=== PATIENT | male | born 1960 | race Caucasian/White ===

== ENCOUNTER 2023-05-12 17:59 | Outpatient (RCR) | payer BC, SELFPAY | END 2023-05-12 23:59 | disposition home or self-care (01) | LOC: RPT 17:59 | PROVIDERS: ATTENDING PHYSICIAN Orthopaedic Surgery Orthopaedic Surgery of the Spine | DX: Z47.89 Encounter for other orthopedic aftercare (principal); M48.062 Spinal stenosis, lumbar region with neurogenic claudication; M43.16 Spondylolisthesis, lumbar region; Z73.6 Limitation of activities due to disability; M62.81 Muscle weakness (generalized); R26.89 Other abnormalities of gait and mobility; Z98.1 Arthrodesis status | CPT/HCPCS: 97110; 97112; 97140; 97161; 97530 ==

== ENCOUNTER 2023-05-28 17:05 | Outpatient (RCR) | payer BC, SELFPAY | END 2023-05-29 09:56 | disposition home or self-care (01) | LOC: RPT 17:05 | PROVIDERS: ATTENDING PHYSICIAN Orthopaedic Surgery Orthopaedic Surgery of the Spine | DX: Z47.89 Encounter for other orthopedic aftercare (principal); M48.062 Spinal stenosis, lumbar region with neurogenic claudication; M43.16 Spondylolisthesis, lumbar region; Z73.6 Limitation of activities due to disability; R26.89 Other abnormalities of gait and mobility; Z98.1 Arthrodesis status | CPT/HCPCS: 97110; 97112; 97530 ==

== ENCOUNTER → 2023-07-07 06:52 | Outpatient (REF) | payer BC, SELFPAY ==
[2023-07-07 07:59] LABS: NT-proBNP 94.4 pg/ml
[2023-07-07 08:01] LABS: Prealbumin (Transthyretin) 38.2 mg/dl (17.6-36.0)
[2023-07-07 08:10] LABS: Carbon Dioxide 27 mmol/L (22-30); Chloride 102 mmol/L (98-107); Potassium 4.6 mmol/L (3.5-5.1); Sodium 136 mmol/L (135-145); Total Cholesterol 128 mg/dl (50-199)
[2023-07-07 08:22] LABS: Blood Urea Nitrogen 24 mg/dl (9-20); Calcium 9.8 mg/dl (8.4-10.2); Glucose 115 mg/dl (70-99); HDL Cholesterol 43 mg/dl; LDL Cholesterol, Calculated 61 mg/dl; Triglyceride 120 mg/dl (10-149); Very Low Density Lipoprotein 24 mg/dl (0-30); eGFR > 60.00
== END ==
LOC: REG 06:52
PROVIDERS: ATTENDING PHYSICIAN Internal Medicine Cardiovascular Disease; FAMILY PHYSICIAN Internal Medicine Cardiovascular Disease
DX: E78.00 Pure hypercholesterolemia, unspecified (principal); I50.30 Unspecified diastolic (congestive) heart failure; R06.09 Other forms of dyspnea
CPT/HCPCS: 36415; 80048; 80061; 83880; 84134

== ENCOUNTER → 2023-08-22 07:01 | Outpatient (REF) | payer BC, SELFPAY ==
[2023-08-22 07:58] LABS: Blood Urea Nitrogen 22 mg/dl (9-20); Calcium 9.8 mg/dl (8.4-10.2); Carbon Dioxide 30 mmol/L (22-30); Chloride 102 mmol/L (98-107); Glucose 109 mg/dl (70-99); Potassium 4.5 mmol/L (3.5-5.1); Sodium 137 mmol/L (135-145); eGFR > 60.00
== END ==
LOC: REG 07:01
PROVIDERS: ATTENDING PHYSICIAN Internal Medicine Geriatric Medicine
DX: R26.2 Difficulty in walking, not elsewhere classified (principal); K76.0 Fatty (change of) liver, not elsewhere classified
CPT/HCPCS: 36415; 80048; 83036

== ENCOUNTER → 2024-01-19 06:45 | Outpatient (REF) | payer BC, SELFPAY ==
[2024-01-19 08:15] LABS: Blood Urea Nitrogen 27 mg/dl (9-20); Calcium 9.4 mg/dl (8.4-10.2); Carbon Dioxide 24 mmol/L (22-30); Chloride 103 mmol/L (98-107); Glucose 96 mg/dl (70-99); Potassium 4.3 mmol/L (3.5-5.1); Sodium 142 mmol/L (135-145); eGFR > 60.00
[2024-01-19 09:03] LABS: PSA, Total - Screen 0.58 ng/ml (0.0-4.0)
== END ==
LOC: REG 06:45
PROVIDERS: ATTENDING PHYSICIAN Internal Medicine Cardiovascular Disease; FAMILY PHYSICIAN Internal Medicine Geriatric Medicine
DX: I10 Essential (primary) hypertension (principal); G47.33 Obstructive sleep apnea (adult) (pediatric); Z95.1 Presence of aortocoronary bypass graft; E78.5 Hyperlipidemia, unspecified; I25.10 Atherosclerotic heart disease of native coronary artery without angina pectoris
CPT/HCPCS: 36415; 80048; G0103

== ENCOUNTER → 2024-02-09 06:51 | Outpatient (REF) | payer BC, SELFPAY ==
[2024-02-09 08:38] LABS: NT-proBNP 200 pg/ml
== END ==
LOC: REG 06:51
PROVIDERS: ATTENDING PHYSICIAN Internal Medicine Cardiovascular Disease; FAMILY PHYSICIAN Internal Medicine Geriatric Medicine; OTHER PHYSICIAN Internal Medicine Cardiovascular Disease
DX: E85.4 Organ-limited amyloidosis (principal); I43 Cardiomyopathy in diseases classified elsewhere
CPT/HCPCS: 36415; 83880

== ENCOUNTER 2024-02-12 11:27 | Outpatient (RCR) | payer BC, SELFPAY ==
[2024-02-12] VITALS (8 sets, daily range): BP systolic 124–145; BP diastolic 72–91
[2024-02-12] MEDS: NSS 250 IV (11:45)
[2024-02-12] MEDS: BENADRYL 25 MG PO (11:48)
[2024-02-12] MEDS: TYLENOL 650 MG PO (11:48)
[2024-02-12] MEDS: GAMMAGARD 50 IV (11:49)
[2024-02-12] MEDS: GAMMAGARD 200 IV ×2 (12:35→13:34)
== END 2024-02-12 15:20 | disposition home or self-care (01) ==
LOC: OID 11:27
PROVIDERS: ATTENDING PHYSICIAN Psychiatry & Neurology Neurology; FAMILY PHYSICIAN Internal Medicine Geriatric Medicine
DX: E85.82 Wild-type transthyretin-related (ATTR) amyloidosis (principal); E55.9 Vitamin D deficiency, unspecified; R26.2 Difficulty in walking, not elsewhere classified; R60.0 Localized edema; M54.9 Dorsalgia, unspecified
CPT/HCPCS: 96365; 96366; J1569

== ENCOUNTER → 2024-02-18 11:22 | Outpatient (RCR) | payer BC, SELFPAY ==
[2024-02-13] VITALS (8 sets, daily range): BP systolic 118–139; BP diastolic 65–92
[2024-02-13] MEDS: NSS 250 IV (11:36)
[2024-02-13] MEDS: GAMMAGARD 50 IV (11:37)
[2024-02-13] MEDS: TYLENOL 650 MG PO (11:37)
[2024-02-13] MEDS: BENADRYL 25 MG PO (11:38)
[2024-02-13] MEDS: GAMMAGARD 200 IV ×2 (12:21→13:24)
[2024-02-16] VITALS (7 sets, daily range): BP systolic 113–127; BP diastolic 67–79
[2024-02-16] MEDS: TYLENOL 650 MG PO (11:36)
[2024-02-16] MEDS: BENADRYL 25 MG PO (11:36)
[2024-02-16] MEDS: NSS 250 IV (11:42)
[2024-02-16] MEDS: GAMMAGARD 50 IV (11:42)
[2024-02-16] MEDS: GAMMAGARD 200 IV ×2 (12:27→13:29)
[2024-02-17] VITALS (7 sets, daily range): BP systolic 106–135; BP diastolic 65–90
[2024-02-17] MEDS: NSS 250 IV (11:35)
[2024-02-17] MEDS: TYLENOL 650 MG PO (11:36)
[2024-02-17] MEDS: BENADRYL 25 MG PO (11:36)
[2024-02-17] MEDS: GAMMAGARD 50 IV (11:36)
[2024-02-17] MEDS: GAMMAGARD 200 IV ×2 (12:17→13:38)
[2024-02-18] VITALS (8 sets, daily range): BP systolic 121–138; BP diastolic 72–86
[2024-02-18] MEDS: GAMMAGARD 50 IV (11:40)
[2024-02-18] MEDS: NSS 250 IV (11:40)
[2024-02-18] MEDS: TYLENOL 650 MG PO (11:41)
[2024-02-18] MEDS: BENADRYL 25 MG PO (11:41)
[2024-02-18] MEDS: GAMMAGARD 200 IV ×2 (12:27→13:31)
== END ==
LOC: OID 11:22
PROVIDERS: ATTENDING PHYSICIAN Psychiatry & Neurology Neurology; FAMILY PHYSICIAN Internal Medicine Geriatric Medicine
DX: E85.82 Wild-type transthyretin-related (ATTR) amyloidosis (principal); G61.0 Guillain-Barre syndrome; E55.9 Vitamin D deficiency, unspecified; R26.2 Difficulty in walking, not elsewhere classified; E78.2 Mixed hyperlipidemia; R60.0 Localized edema; M54.9 Dorsalgia, unspecified
CPT/HCPCS: 96365; 96366; J1569

== ENCOUNTER → 2024-02-25 11:00 | Outpatient (REF) | payer BC, SELFPAY | LOC: RCS 11:00 | PROVIDERS: ATTENDING PHYSICIAN Internal Medicine Cardiovascular Disease; FAMILY PHYSICIAN Internal Medicine Geriatric Medicine; REFERRING PHYSICIAN Internal Medicine Cardiovascular Disease | DX: I25.10 Atherosclerotic heart disease of native coronary artery without angina pectoris (principal); I50.30 Unspecified diastolic (congestive) heart failure; E85.4 Organ-limited amyloidosis; I43 Cardiomyopathy in diseases classified elsewhere | CPT/HCPCS: 93306; 93356 ==

== ENCOUNTER → 2024-03-09 06:41 | Outpatient (REF) | payer BC, SELFPAY ==
[2024-03-09 08:11] LABS: Blood Urea Nitrogen 25 mg/dl (9-20); Calcium 9.3 mg/dl (8.4-10.2); Carbon Dioxide 25 mmol/L (22-30); Chloride 100 mmol/L (98-107); Glucose 113 mg/dl (70-99); Potassium 4.4 mmol/L (3.5-5.1); Sodium 138 mmol/L (135-145); eGFR > 60.00
== END ==
LOC: REG 06:41
PROVIDERS: ATTENDING PHYSICIAN Internal Medicine Cardiovascular Disease; FAMILY PHYSICIAN Internal Medicine Geriatric Medicine
DX: I25.10 Atherosclerotic heart disease of native coronary artery without angina pectoris (principal); I50.30 Unspecified diastolic (congestive) heart failure
CPT/HCPCS: 36415; 80048

== ENCOUNTER 2024-06-02 11:28 | Outpatient (RCR) | payer BC, SELFPAY ==
[2024-05-19 11:40] VITALS: BP 128/77
[2024-05-19] MEDS: VYVGART HYTRULO 1,008MG-11,200 1008 MG SC (11:55)
[2024-05-26 11:42] VITALS: BP 121/72
[2024-05-26] MEDS: VYVGART HYTRULO 1,008MG-11,200 1008 MG SC (11:54)
[2024-06-02 11:43] VITALS: BP 126/78
[2024-06-02] MEDS: VYVGART HYTRULO 1,008MG-11,200 1008 MG SC (11:54)
== END 2024-06-03 08:39 | disposition home or self-care (01) ==
LOC: OID 11:28
PROVIDERS: ATTENDING PHYSICIAN Psychiatry & Neurology Neurology; FAMILY PHYSICIAN Internal Medicine Geriatric Medicine
DX: E85.82 Wild-type transthyretin-related (ATTR) amyloidosis (principal); E55.9 Vitamin D deficiency, unspecified; R26.2 Difficulty in walking, not elsewhere classified; E78.2 Mixed hyperlipidemia; R60.0 Localized edema; M54.9 Dorsalgia, unspecified; G61.0 Guillain-Barre syndrome
CPT/HCPCS: 96372; J9334

== ENCOUNTER → 2024-06-24 06:45 | Outpatient (REF) | payer BC, SELFPAY ==
[2024-06-24 07:44] LABS: NT-proBNP 120 pg/ml
[2024-06-24 07:56] LABS: Blood Urea Nitrogen 27 mg/dl (9-20); Calcium 10.2 mg/dl (8.4-10.2); Carbon Dioxide 26 mmol/L (22-30); Chloride 101 mmol/L (98-107); Glucose 114 mg/dl (70-99); Potassium 4.6 mmol/L (3.5-5.1); Sodium 139 mmol/L (135-145); eGFR > 60.00
[2024-06-24 08:03] LABS: Prealbumin (Transthyretin) 39.2 mg/dl (17.6-36.0)
== END ==
LOC: REG 06:45
PROVIDERS: ATTENDING PHYSICIAN Internal Medicine Cardiovascular Disease; FAMILY PHYSICIAN Internal Medicine Geriatric Medicine; REFERRING PHYSICIAN Internal Medicine Cardiovascular Disease
DX: E85.4 Organ-limited amyloidosis (principal); I43 Cardiomyopathy in diseases classified elsewhere
CPT/HCPCS: 36415; 80048; 83880; 84134

== ENCOUNTER 2024-07-07 11:28 | Outpatient (RCR) | payer BC, SELFPAY ==
[2024-06-16 11:33] VITALS: BP 125/76
[2024-06-16] MEDS: VYVGART HYTRULO 1,008MG-11,200 1008 MG SC (11:41)
[2024-06-16 11:57] VITALS: BP 123/73
[2024-06-23 11:49] VITALS: BP 130/74
[2024-06-23] MEDS: VYVGART HYTRULO 1,008MG-11,200 1008 MG SC (11:58)
[2024-06-30 11:32] VITALS: BP 125/71
[2024-06-30] MEDS: VYVGART HYTRULO 1,008MG-11,200 1008 MG SC (11:43)
[2024-07-07 11:35] VITALS: BP 138/74
[2024-07-07] MEDS: VYVGART HYTRULO 1,008MG-11,200 1008 MG SC (11:42)
== END 2024-07-09 13:10 | disposition home or self-care (01) ==
LOC: OID 11:28
PROVIDERS: ATTENDING PHYSICIAN Psychiatry & Neurology Neurology; FAMILY PHYSICIAN Internal Medicine Geriatric Medicine
DX: E85.82 Wild-type transthyretin-related (ATTR) amyloidosis (principal); E55.9 Vitamin D deficiency, unspecified; R26.2 Difficulty in walking, not elsewhere classified; E78.2 Mixed hyperlipidemia; R60.0 Localized edema; M54.9 Dorsalgia, unspecified; G61.0 Guillain-Barre syndrome
CPT/HCPCS: 96372; J9334

== ENCOUNTER 2024-07-14 11:28 | Outpatient (RCR) | payer BC, SELFPAY ==
[2024-07-14 11:37] VITALS: BP 132/75
[2024-07-14] MEDS: VYVGART HYTRULO 1,008MG-11,200 1008 MG SC (11:46)
== END 2024-07-16 14:36 | disposition home or self-care (01) ==
LOC: OID 11:28
PROVIDERS: ATTENDING PHYSICIAN Psychiatry & Neurology Neurology; FAMILY PHYSICIAN Internal Medicine Geriatric Medicine
DX: E85.82 Wild-type transthyretin-related (ATTR) amyloidosis (principal); E55.9 Vitamin D deficiency, unspecified; G61.0 Guillain-Barre syndrome; R26.2 Difficulty in walking, not elsewhere classified; R60.0 Localized edema; M54.9 Dorsalgia, unspecified; E78.2 Mixed hyperlipidemia
CPT/HCPCS: 96372; J9334

== ENCOUNTER → 2024-07-16 06:49 | Outpatient (REF) | payer BC, SELFPAY ==
[2024-07-16 08:02] LABS: Blood Urea Nitrogen 29 mg/dl (9-20); Calcium 9.8 mg/dl (8.4-10.2); Carbon Dioxide 25 mmol/L (22-30); Chloride 105 mmol/L (98-107); Glucose 107 mg/dl (70-99); HDL Cholesterol 37 mg/dl; LDL Cholesterol, Calculated 41 mg/dl; Potassium 4.4 mmol/L (3.5-5.1); Sodium 140 mmol/L (135-145); Total Cholesterol 102 mg/dl (50-199); Triglyceride 122 mg/dl (10-149); Very Low Density Lipoprotein 24 mg/dl (0-30); eGFR > 60.00
== END ==
LOC: REG 06:49
PROVIDERS: ATTENDING PHYSICIAN Internal Medicine Cardiovascular Disease; FAMILY PHYSICIAN Internal Medicine Geriatric Medicine
DX: I10 Essential (primary) hypertension (principal); I25.10 Atherosclerotic heart disease of native coronary artery without angina pectoris; E78.00 Pure hypercholesterolemia, unspecified
CPT/HCPCS: 36415; 80048; 80061

== ENCOUNTER → 2024-07-28 10:49 | Outpatient (REF) | payer BC, SELFPAY | LOC: RAD 10:49 | PROVIDERS: ATTENDING PHYSICIAN Internal Medicine Geriatric Medicine | DX: R07.89 Other chest pain (principal) | CPT/HCPCS: 71046; 71120 ==

== ENCOUNTER 2024-09-08 11:19 | Outpatient (RCR) | payer BC, SELFPAY ==
[2024-09-01 11:32] VITALS: BP 127/77
[2024-09-01] MEDS: VYVGART HYTRULO 1,008MG-11,200 1008 MG SC (11:46)
[2024-09-08 11:47] VITALS: BP 129/79
[2024-09-08] MEDS: VYVGART HYTRULO 1,008MG-11,200 1008 MG SC (11:49)
== END 2024-09-10 09:03 | disposition home or self-care (01) ==
LOC: OID 11:19
PROVIDERS: ATTENDING PHYSICIAN Psychiatry & Neurology Neurology; FAMILY PHYSICIAN Internal Medicine Geriatric Medicine
DX: E85.82 Wild-type transthyretin-related (ATTR) amyloidosis (principal); E55.9 Vitamin D deficiency, unspecified; R26.2 Difficulty in walking, not elsewhere classified; R60.0 Localized edema; M54.9 Dorsalgia, unspecified; G61.0 Guillain-Barre syndrome; E78.2 Mixed hyperlipidemia
CPT/HCPCS: 96372; J9334

== ENCOUNTER 2024-09-22 11:22 | Outpatient (RCR) | payer BC, SELFPAY ==
[2024-09-15 11:29] VITALS: BP 126/78
[2024-09-15] MEDS: VYVGART HYTRULO 1,008MG-11,200 1008 MG SC (11:44)
[2024-09-22 11:27] VITALS: BP 127/79
[2024-09-22] MEDS: VYVGART HYTRULO 1,008MG-11,200 1008 MG SC (11:37)
== END 2024-09-23 08:20 | disposition home or self-care (01) ==
LOC: OID 11:22
PROVIDERS: ATTENDING PHYSICIAN Psychiatry & Neurology Neurology; FAMILY PHYSICIAN Internal Medicine Geriatric Medicine
DX: E85.82 Wild-type transthyretin-related (ATTR) amyloidosis (principal); E55.9 Vitamin D deficiency, unspecified; R26.2 Difficulty in walking, not elsewhere classified; E78.2 Mixed hyperlipidemia; R60.0 Localized edema; M54.9 Dorsalgia, unspecified; G61.0 Guillain-Barre syndrome
CPT/HCPCS: 96372; J9334

== ENCOUNTER 2024-11-10 11:15 | Outpatient (RCR) | payer BC, SELFPAY ==
[2024-10-27 11:34] VITALS: BP 127/84
[2024-10-27] MEDS: VYVGART HYTRULO 1,008MG-11,200 1008 MG SC (11:47)
[2024-11-03 11:35] VITALS: BP 112/79
[2024-11-03] MEDS: VYVGART HYTRULO 1,008MG-11,200 1008 MG SC (11:41)
[2024-11-10 11:48] VITALS: BP 125/72
[2024-11-10] MEDS: VYVGART HYTRULO 1,008MG-11,200 1008 MG SC (11:53)
== END 2024-11-11 23:59 | disposition home or self-care (01) ==
LOC: OID 11:15
PROVIDERS: ATTENDING PHYSICIAN Psychiatry & Neurology Neurology; FAMILY PHYSICIAN Internal Medicine Geriatric Medicine
DX: E85.82 Wild-type transthyretin-related (ATTR) amyloidosis (principal); E55.9 Vitamin D deficiency, unspecified; R26.2 Difficulty in walking, not elsewhere classified; E78.2 Mixed hyperlipidemia; R60.0 Localized edema; M54.9 Dorsalgia, unspecified; G61.0 Guillain-Barre syndrome; G61.81 Chronic inflammatory demyelinating polyneuritis
CPT/HCPCS: 96372; J9334

== ENCOUNTER 2024-12-01 11:18 | Outpatient (RCR) | payer BC, SELFPAY ==
[2024-11-17 11:21] VITALS: BP 140/87
[2024-11-17] MEDS: VYVGART HYTRULO 1,008MG-11,200 1008 MG SC (11:30)
[2024-11-24 11:34] VITALS: BP 143/84
[2024-11-24] MEDS: VYVGART HYTRULO 1,008MG-11,200 1008 MG SC (11:53)
[2024-12-01 11:43] VITALS: BP 133/77
[2024-12-01] MEDS: VYVGART HYTRULO 1,008MG-11,200 1008 MG SC (11:53)
== END 2024-12-12 23:59 | disposition home or self-care (01) ==
LOC: OID 11:18
PROVIDERS: ATTENDING PHYSICIAN Psychiatry & Neurology Neurology; FAMILY PHYSICIAN Internal Medicine Geriatric Medicine
DX: E85.82 Wild-type transthyretin-related (ATTR) amyloidosis (principal); E55.9 Vitamin D deficiency, unspecified; R26.2 Difficulty in walking, not elsewhere classified; E78.2 Mixed hyperlipidemia; R60.0 Localized edema; M54.9 Dorsalgia, unspecified; G61.0 Guillain-Barre syndrome; G61.81 Chronic inflammatory demyelinating polyneuritis
CPT/HCPCS: 96372; J9334

== ENCOUNTER 2024-12-28 06:47 | Emergency (ER) | payer BC, SELFPAY ==
[2024-12-28 06:51] VITALS: BP 143/89
--- NOTE | 2024-12-28 08:38 | ED.GENMED ---
History of Present Illness
<PETE Marquez - Last Filed: 12/28/24 16:25>
General
Chief Complaint: Musculo-Skeletal Complaint
Source: patient
Exam Limitations: none
Time Seen by Provider: 12/28/24 08:06
Nursing documentation reviewed up to this point in time: agreed with
History of Present Illness
History of Present Illness:
Patient is a 64-year-old male with past medical history of CAD CABG amyloid cardiomyopathy , chronic inflammatory demyelinating presents to the ER for evaluation. Patient reports last evening he got up off the sofa and felt intense pain in his left
hip. He complains of pain that radiates down his left leg he does feel slight pain to the left buttock/back region. He had a lumbar fusion years ago by Dr. Aaron Armando. Denies any trauma. Denies any fever chills. Denies any numbness tingling
weakness. Denies any bowel bladder incontinence. He reports pain is worse with standing he complains of shooting pain down his leg.
Past History
<PETE Marquez - Last Filed: 12/28/24 16:25>
Past History
ED Past Medical History: GERD, HTN, NIDDM, Other (Guillain-Martinsburg syndrome diagnosed in 2018), Other (CHANTALE) and Other (low vitamin D)
ED Past Surgical History: Orthopedic (right shoulder replacement, ankle surgeries)
Social History
Tobacco: Non-smoker
Drug: None
Personal:
Living: with family
Employment: Employed
Family History
Family History: Other (reviewed and noncontributory)
Phy Exam
<PETE Marquez - Last Filed: 12/28/24 16:25>
General Physical Exam
General Presentation: no apparent distress
General age: appears stated age
General Skin: warm and dry
General Habitus: normal
General Mental: alert
General Hydration: appears well hydrated
Neurological Exam
Neurological Exam: alert and oriented x3
Musculoskeletal Exam
Musculoskeletal Exam: other (Full range of motion to left hip with internal/external rotation negative straight legs normal distal sensation chronic deformity to left lower leg from surgery years ago)
Skin Exam
Skin Exam: normal color and warm/dry
Psychiatric Exam
Psychiatric Exam: normal mood/affect
Course
<PETE Marquez - Last Filed: 12/28/24 16:25>
Orders/Labs/Results
Orders:
Orders
12/28/24 08:28
Ketorolac [Toradol] 30 mg IM NOW STA
12/28/24 08:44
Hip, Left 2-3 Views [CR Hip - LT w/wo Pel 2-3 Vw*] Urgent
Comment:
Reason For Exam: pain left hip region
Include a pelvis x-ray?: Yes
12/28/24 10:06
Dexamethasone Pf [Decadron] 10 mg PO NOW STA
12/28/24 11:54
diazePAM [Valium Injection] 5 mg IM NOW STA
Vital Signs
Initial and Last Documented VS:
Initial Vital Signs
Temp Pulse Resp BP Pulse Ox
98.0 F 70 18 143/89 95
12/28/24 06:51 12/28/24 06:51 12/28/24 06:51 12/28/24 06:51 12/28/24 06:51
Last Documented Vital Signs
Temp Pulse Resp BP Pulse Ox
98.0 F 74 16 145/80 98
12/28/24 06:51 12/28/24 13:24 12/28/24 13:24 12/28/24 13:24 12/28/24 13:24
Conference Service Coordinator consulted with Physician
Conference Service Coordinator consulted with physician?: Yes
Name of Physician Consulted: Valeria
<Tisha Shaw DO - Last Filed: 12/28/24 11:45>
Orders/Labs/Results
Orders:
Orders
12/28/24 08:28
Ketorolac [Toradol] 30 mg IM NOW STA
12/28/24 08:44
Hip, Left 2-3 Views [CR Hip - LT w/wo Pel 2-3 Vw*] Urgent
Comment:
Reason For Exam: pain left hip region
Include a pelvis x-ray?: Yes
12/28/24 10:06
Dexamethasone Pf [Decadron] 10 mg PO NOW STA
12/28/24 11:54
diazePAM [Valium Injection] 5 mg IM NOW STA
Vital Signs
Initial and Last Documented VS:
Initial Vital Signs
Temp Pulse Resp BP Pulse Ox
98.0 F 70 18 143/89 95
12/28/24 06:51 12/28/24 06:51 12/28/24 06:51 12/28/24 06:51 12/28/24 06:51
Last Documented Vital Signs
Temp Pulse Resp BP Pulse Ox
98.0 F 74 16 145/80 98
12/28/24 06:51 12/28/24 13:24 12/28/24 13:24 12/28/24 13:24 12/28/24 13:24
<PETE Marquez - Last Filed: 12/28/24 16:25>
MDM/Problems Addressed
Differential Diagnosis Includes:
Not limited to degenerative disease, arthritis, muscle sprain strain, muscle pain, sciatica radiculopathy
MDM/Problems Addressed:
Symptoms are mostly consistent with sciatica. Patient received Decadron here along with Valium with improvement still with some discomfort. He has been evaluated by Dr. Wilkinson as well as Dr. Aaron Pedersen in the past and we discussed close outpatient
follow-up will likely need MRI. He has no neurological deficits no bowel or bladder incontinence. Case discussed with ED physician who evaluated patient at bedside.
He has Flexeril at home however Valium seems to work better for him. He is aware to not take Valium while taking his oxycodone and obviously he will stop Flexeril we will send a prescription for Valium and steroids to patient's pharmacy.
Chronic conditions affecting care:
Chronic pain amyloid cardiomyopathy, CIDP
<PETE Marquez - Last Filed: 12/28/24 16:25>
*Radiology
Radiology exam reviewed: radiology read reviewed
*Pulse Oximetry
SaO2: 95
Oxygen Mode of Delivery: Room air
Patient hypoxic: no
*Critical Care Note
Total Time (30-74mins, 75-104mins- exclusive of procedures): Not Applicable
ED Attending Note
<PETE Marquez - Last Filed: 12/28/24 16:25>
-
Portions of this chart may have been created with voice recognition software.� Occasional wrong word or��sound alike� substitutions may have occurred due to the inherent limitations of voice recognition software.
<Tisha Shaw DO - Last Filed: 12/28/24 11:45>
ED Attending Note
Patient seen and examined by attending physician: Yes
I performed the substantive portion of visit, reviewed & personally made and approve the management plan that is documented in note by myself or DILLAN.: Yes
I performed a history and physical exam of patient and discussed management with resident, I reviewed resident's note and agree with documented findings and plan of care.: Yes
ED Attending Note:
64-year-old male with history of prior lumbar surgery presenting to the emergency department for left-sided back pain. Patient reports it started yesterday after he got up out of a recliner chair. He felt immediate pain in the left lower back,
radiating down his leg. Reports chronic neuropathy, which has not changed. Reports pain and difficulty ambulating secondary to pain. Denies fever. Denies issues with bowel or bladder continence. He tried Tylenol prior to arrival. Denies
additional injuries or direct fall. Vital signs are normal.
On exam patient is resting comfortably, no acute distress. Mild reproducible pain to the left lumbar musculature, particularly at the gluteal region. No significant tenderness to the midline. Distal sensation is diminished, however reports this
is chronic. Palpable pulses. Range of motion at the hip is grossly intact, limited secondary to pain. Ultimately suspect lumbar radiculopathy. X-ray obtained of the hip region, unremarkable. Toradol administered for pain with some slight
improvement. Do feel patient would benefit from trial of steroids. Will ambulate to ensure patient is steady.
Discharge Plan
Departure
Patient Disposition: Home (Routine Discharge)
Date of Disposition: 12/28/24
Time of Disposition: 13:11
Patient with high blood pressure during this ER visit?: Yes
Condition: Fair
Covid-19: Not Applicable
Discharge Problem:
Radicular leg pain, Sciatica
Instructions: Sciatica - ED (DC), BLOOD PRESSURE
Prescriptions:
New
prednisone 10 mg Tablet
See Rx Instructions .ROUTE .COMPLEX Qty: 30 0RF
Rx Instructions:
Take By Mouth:
40 mg daily x3 days, 30 mg daily x3 days,
20 mg daily x3 days, 10 mg daily x3 days.
diazepam [Valium] 5 mg tablet
5 mg PO BID PRN (Reason: muscle spasm) Qty: 10 0RF
No Action
amoxicillin 500 MG capsule
500 mg PO DAILY
Patient Comments:
no end date
carvedilol 3.125 MG tablet
3.125 mg PO BID
zinc 50 MG tablet
50 mg PO DAILY
ezetimibe 10 MG tablet
10 mg PO DAILY
Vyndamax 61 mg Capsule
61 mg PO DAILY@1600
Patient Comments:
04/05/2023, patient states that they get this medication delivered to them from [facility]; phone number: [phone].
B-complex with vitamin C 1 CAPLET tablet
1 caplet PO DAILY
lisinopril 10 MG tablet
10 mg PO HS Qty: 0 0RF
ascorbic acid (vitamin C) [Vitamin C] 1,000 mg Tablet
1,000 mg PO DAILY
aspirin 81 mg Tablet,Delayed Release (Dr/Ec)
162 mg PO DAILY
acetaminophen [Tylenol Arthritis] 650 mg Tablet Extended Release
650 mg PO BID
coenzyme Q10 [CoQ-10] 100 mg Capsule
100 mg PO DAILY
Visbiome 112.5 billion cell Capsule
1 cap PO DAILY
cholecalciferol (vitamin D3) 75 mcg (3,000 unit) Tablet
75 mcg PO DAILY
psyllium husk
5 cap PO BID
furosemide 40 mg Tablet
40 mg PO DAILY
trazodone 50 mg Tablet
100 mg PO HS
ferrous sulfate [iron] 325 mg (65 mg iron) Tablet
325 mg PO DAILY
omeprazole 20 mg Capsule,Delayed Release(Dr/Ec)
20 mg PO DAILY
lorazepam 1 mg Tablet
1 mg PO BID PRN (Reason: anxiety/muscle spasm)
Patient Comments:
04/05/2023, patient filled this medication on 02/28/2023 for 90 tablets according to PDMP.
potassium chloride 10 mEq Tablet,Er Particles/Crystals
10 meq PO DAILY
cyclobenzaprine 10 mg tablet
10 mg PO DAILYPRN PRN (Reason: muscle spasm)
atorvastatin 80 MG tablet
80 mg PO QPM
oxycodone 10 MG tablet
10 mg PO DAILYPRN PRN (Reason: severe pain)
Patient Comments:
04/05/2023, patient filled this medication on 03/01/2023 for 90 tablets according to PDMP.
Jardiance 10 mg Tablet
10 mg PO DAILY
Vyvgart Hytrulo 1,008 mg-11,200 unit/5.6 mL Solution
5.6 ml SC QWEEK
eplerenone 25 mg Tablet
25 mg PO DAILY
Referrals:
Aaron Armando MD [Active, Orthopedics]
Roque Smalls MD [Family Provider, Internal Medicine]
Activity Restrictions/Additional Instructions:
As discussed a prescription for steroid taper along Valium sent to pharmacy take as directed. Please follow-up with your orthopedic physician in the next several days. call to make an appointment. Stop Flexeril and do not take oxycodone while
taking Valium. Return if any worsening of symptoms include increasing pain loss of bowel bladder or weakness in lower extremities or any further concerns.
Interventions
Interventions:
*Risk Screen - Suicide Last Done: 12/28/24 06:51
*General Assessment Last Done: 12/28/24 06:51
*Neglect/Abuse Screening Last Done: 12/28/24 06:51
*ED- Fall Risk Assessment Last Done: 12/28/24 13:24
*ED COVID-19 Vaccine History Last Done: 12/28/24 13:24
*Nursing Disposition Last Done: 12/28/24 13:24
ED-Musculoskeletal Assessment Last Done: 12/28/24 08:45
Discharge Date and Time
Discharge Date/Time: 12/28/24 13:35
Print Language: BULGARIAN
[2024-12-28] MEDS: TORADOL 30 MG IM (08:41)
[2024-12-28] MEDS: DECADRON 10 MG PO (10:45)
[2024-12-28] MEDS: VALIUM INJECTION 5 MG IM (12:04)
[2024-12-28 13:24] VITALS: BP 145/80
== END 2024-12-28 13:35 | disposition home or self-care (01) ==
LOC: EMR 06:47
PROVIDERS: EMERGENCY PHYSICIAN Student in an Organized Health Care Education/Training Program; FAMILY PHYSICIAN Internal Medicine Geriatric Medicine
DX: M54.42 Lumbago with sciatica, left side (principal); E85.4 Organ-limited amyloidosis; I43 Cardiomyopathy in diseases classified elsewhere; G61.81 Chronic inflammatory demyelinating polyneuritis; E11.40 Type 2 diabetes mellitus with diabetic neuropathy, unspecified; I25.810 Atherosclerosis of coronary artery bypass graft(s) without angina pectoris; I10 Essential (primary) hypertension; G47.33 Obstructive sleep apnea (adult) (pediatric); K21.9 Gastro-esophageal reflux disease without esophagitis; Z79.84 Long term (current) use of oral hypoglycemic drugs; Z79.82 Long term (current) use of aspirin; Z95.1 Presence of aortocoronary bypass graft; Z96.611 Presence of right artificial shoulder joint
CPT/HCPCS: 99284; 96372 ×2; 73502

== ENCOUNTER → 2025-01-18 20:12 | Outpatient (REF) | payer BC, SELFPAY | LOC: MRI 20:12 | PROVIDERS: ATTENDING PHYSICIAN Orthopaedic Surgery Orthopaedic Surgery of the Spine; FAMILY PHYSICIAN Internal Medicine Geriatric Medicine | DX: Z98.1 Arthrodesis status (principal); M43.16 Spondylolisthesis, lumbar region; M48.062 Spinal stenosis, lumbar region with neurogenic claudication | CPT/HCPCS: 72158; A9575 ==

== ENCOUNTER → 2025-01-21 06:53 | Outpatient (REF) | payer BC, SELFPAY ==
[2025-01-21 07:25] LABS: Hematocrit 51.8 % (39.0-52.0); Hemoglobin 17.6 g/dL (13.0-18.0); Mean Corp Hgb Conc. 34.0 g/dL (33.0-37.0); Mean Corpuscular Volume 94.4 fL (80.0-94.0); Nucleated Red Blood Cells % 0 % (-); Platelet Count 185 10^3/uL (130-400); Red Cell Dist. Width 13.5 % (11.5-14.5)
[2025-01-21 07:48] LABS: Urine Character Clear (Clear)
[2025-01-21 07:53] LABS: ALT (SGPT) 36 U/L (0-50); AST (SGOT) 28 U/L (17-59); Albumin 5.2 g/dl (3.5-5.0); Alkaline Phosphatase 63 U/L (38-126); Blood Urea Nitrogen 25 mg/dl (9-20); Calcium 9.8 mg/dl (8.4-10.2); Carbon Dioxide 30 mmol/L (22-30); Chloride 102 mmol/L (98-107); Glucose 116 mg/dl (70-99); HDL Cholesterol 52 mg/dl; LDL Cholesterol, Calculated 55 mg/dl; Potassium 4.5 mmol/L (3.5-5.1); Sodium 140 mmol/L (135-145); Total Protein 7.0 g/dl (6.3-8.2); Very Low Density Lipoprotein 23 mg/dl (0-30); eGFR > 60.00
[2025-01-21 08:09] LABS: Vitamin D, 25-OH*** 37.8 ng/mL (30-80)
[2025-01-21 08:33] LABS: Urine Red Blood Cell 0-2 /HPF (0-2); Urine Squamous Cell 0-2 /LPF (Few); Urine White Cell 0-2 /HPF (0-5)
== END ==
LOC: REG 06:53
PROVIDERS: ATTENDING PHYSICIAN Internal Medicine Geriatric Medicine
DX: Z00.00 Encounter for general adult medical examination without abnormal findings (principal); I10 Essential (primary) hypertension; E78.2 Mixed hyperlipidemia; I11.9 Hypertensive heart disease without heart failure; R73.03 Prediabetes; I25.118 Atherosclerotic heart disease of native coronary artery with other forms of angina pectoris; M19.011 Primary osteoarthritis, right shoulder; E55.9 Vitamin D deficiency, unspecified; K21.9 Gastro-esophageal reflux disease without esophagitis; R07.89 Other chest pain; Z13.89 Encounter for screening for other disorder; G61.81 Chronic inflammatory demyelinating polyneuritis
CPT/HCPCS: 36415; 80053; 80061; 81003; 81015; 82306; 85025; 85652

== ENCOUNTER → 2025-01-31 17:39 | Outpatient (REF) | payer BC, SELFPAY | LOC: MRI 17:39 | PROVIDERS: ATTENDING PHYSICIAN Orthopaedic Surgery Orthopaedic Surgery of the Spine; FAMILY PHYSICIAN Internal Medicine Geriatric Medicine | DX: M25.852 Other specified joint disorders, left hip (principal) | CPT/HCPCS: 73721 ==

== ENCOUNTER 2025-03-09 09:30 | Inpatient (IN) | payer BC, SELFPAY ==
[2025-02-24 09:12] LABS: Hematocrit 48.5 % (39.0-52.0); Hemoglobin 16.7 g/dL (13.0-18.0); Mean Corp Hgb Conc. 34.4 g/dL (33.0-37.0); Mean Corpuscular Volume 90.5 fL (80.0-94.0); Platelet Count 211 10^3/uL (130-400); Red Cell Dist. Width 12.9 % (11.5-14.5)
[2025-02-24 10:29] LABS: ALT (SGPT) 35 U/L (0-50); AST (SGOT) 25 U/L (17-59); Albumin 5.2 g/dl (3.5-5.0); Alkaline Phosphatase 66 U/L (38-126); Blood Urea Nitrogen 22 mg/dl (9-20); Calcium 9.8 mg/dl (8.4-10.2); Carbon Dioxide 22 mmol/L (22-30); Chloride 103 mmol/L (98-107); Glucose 86 mg/dl (70-99); Potassium 4.2 mmol/L (3.5-5.1); Sodium 137 mmol/L (135-145); Total Protein 7.1 g/dl (6.3-8.2); eGFR > 60.00
[2025-02-24 13:53] VITALS: BMI 35.3
[2025-02-24 14:48] VITALS: BMI 35.3
[2025-03-09] VITALS (17 sets, daily range): BP systolic 100–133; BP diastolic 67–91; PULSE 66–67; O2SAT 94–96
[2025-03-09] MEDS: VALIUM INJECTION 5 MG IV (10:30)
[2025-03-09] MEDS: NORMOSOL-R/PLASMALYTE-A 1000 IV ×2 (10:31→15:24)
[2025-03-09] MEDS: TYLENOL 1000 MG PO ×3 (10:32→21:48)
[2025-03-09] MEDS: CELEBREX 200 MG PO (10:32)
[2025-03-09] MEDS: LYRICA PO (10:32)
[2025-03-09] MEDS: LYRICA 150 MG PO (10:35)
[2025-03-09] MEDS: DILAUDID 0.5 MG IV (13:47)
[2025-03-09] MEDS: DILAUDID 0.25 MG IV (13:57)
[2025-03-09] MEDS: ROXICODONE 15 MG PO ×2 (15:21→21:49)
--- NOTE | 2025-03-09 15:45 | W.DS.TRANS ---
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
-
Discharge Instructions:
Discharge Diagnosis/Procedures Revision lumbar lami-psf Dr Armando 03/09/25
Diet As tolerated
Activity No strenuous activity
Driving Restrictions No driving
Instructions:
Stand-Alone Forms: Armando Lumbar D/C Inst.
Changes to Home Medications: Yes
Discharge Medications:
DC Medications w/original date entered in [employer]
amoxicillin 500 mg capsule 500 mg PO DAILY Infection 07/24/21
carvedilol 3.125 mg tablet 3.125 mg PO BID Blood pressure 07/24/21
ezetimibe 10 mg tablet 10 mg PO DAILY High cholesterol 07/24/21
tafamidis 61 mg capsule (Vyndamax) 61 mg PO DAILY@1600 Heart Disease/Condition 02/21/23
B-complex with vitamin C 1 caplet PO DAILY Supplement 03/05/23
ascorbic acid (vitamin C) 1,000 mg tablet (Vitamin C) 1,000 mg PO DAILY 04/05/23
aspirin 81 mg tablet,delayed release 162 mg PO DAILY 04/05/23
Held on 03/09/25. Instructions: Resume on 03/14/25.
atorvastatin 80 mg tablet 80 mg PO QPM 04/05/23
cholecalciferol (vitamin D3) 75 mcg (3,000 unit) tablet 75 mcg PO DAILY 04/05/23
omeprazole 20 mg capsule,delayed release 20 mg PO DAILY 04/05/23
potassium chloride 10 mEq tablet,extended release(part/cryst) 10 meq PO DAILY 04/05/23
psyllium husk 5 cap PO BID 04/05/23
empagliflozin 10 mg tablet (Jardiance) 10 mg PO DAILY 02/12/24
efgartigimod geovanny 1008 [id number] 11,200 unit/5.6 mL subcut soln (Vyvgart Hytrulo) 5.6 ml SC QWEEK 05/26/24
cephalexin 500 mg capsule 500 mg PO QID infection prevention #20 caps 03/02/25
coenzyme Q10 100 mg tablet 100 mg PO DAILY 03/02/25
Held on 03/09/25. Instructions: Resume on 03/17/25.
diazepam 5 mg tablet (Valium) 5 mg PO BID PRN spasm/sleep #20 tabs 03/02/25
gabapentin 300 mg capsule 300 mg PO TID sleep/pain #30 caps 03/02/25
naloxone 4 mg/actuation nasal spray (Narcan) 4 mg intranasal Q2M PRN opioid overdose #1 ea 03/02/25
ondansetron 4 mg disintegrating tablet 4 mg PO Q6H PRN n/v #20 tabs 03/02/25
oxycodone 10 mg tablet,crush resistant,extended release 12 hr (OxyContin) 10 mg PO Q12H ongoing therapy #25 tabs 03/02/25
prednisone 10 mg tablet 40 mg (4 x 10 mg) PO TAPER inflammation #20 tabs 03/02/25
trazodone 100 mg tablet 100 mg PO HS 03/02/25
zinc acetate 50 mg (zinc) capsule 50 mg PO DAILY 03/02/25
Lactobac no.2-Bifidobac no.1-S. thermo 112.5 billion cell capsule (Visbiome) 1 cap PO BID #0 caps 03/09/25
acetaminophen 650 mg tablet,extended release 650 mg PO QID #0 tabs 03/09/25
docusate sodium 100 mg capsule (Colace) 100 mg PO BID stool softner #1 cap 03/09/25
eplerenone 25 mg tablet 25 mg PO DAILY #0 tabs 03/09/25
furosemide 40 mg tablet 40 mg PO DAILY #0 tabs 03/09/25
lisinopril 10 mg tablet 10 mg PO HS #0 tabs 03/09/25
magnesium hydroxide 400 mg/5 mL oral suspension (Milk of Magnesia) 30 ml PO HS PRN constipation #1 mL 03/09/25
oxycodone 10 mg tablet 10 mg PO Q6HPRN PRN moderate-severe pain #1 tab 03/09/25
sennosides 8.6 mg tablet (Senokot) 17.2 mg (2 x 8.6 mg) PO BID laxative #2 tabs 03/09/25
Home Medication Changes
cephalexin 500 mg capsule 500 mg PO QID infection prevention #20 caps 03/02/25
diazepam 5 mg tablet (Valium) 5 mg PO BID PRN spasm/sleep #20 tabs 03/02/25
gabapentin 300 mg capsule 300 mg PO TID sleep/pain #30 caps 03/02/25
naloxone 4 mg/actuation nasal spray (Narcan) 4 mg intranasal Q2M PRN opioid overdose #1 ea 03/02/25
ondansetron 4 mg disintegrating tablet 4 mg PO Q6H PRN n/v #20 tabs 03/02/25
oxycodone 10 mg tablet,crush resistant,extended release 12 hr (OxyContin) 10 mg PO Q12H ongoing therapy #25 tabs 03/02/25
prednisone 10 mg tablet 40 mg (4 x 10 mg) PO TAPER inflammation #20 tabs 03/02/25
Pending Results: No
[2025-03-09] MEDS: ANCEF 5 IV (17:55)
--- NOTE | 2025-03-09 18:33 | PTCARENOTE ---
Pt received from PACU. Normosol infusing. PRN Roxicodone 15mg PO administered for 5/10 lower back pain. Pt states pain came to 2/10. Back brace in place, pt ambulated hallway with PT/OT. Sitting out of bed in chair and eating with family.
[2025-03-09] MEDS: OXYCONTIN (CONTROLLED RELEASE) 10 MG PO (19:37)
[2025-03-09] MEDS: DECADRON 4 MG IV (19:38)
[2025-03-09] MEDS: COLACE 100 MG PO (19:38)
[2025-03-09] MEDS: SENOKOT 17.2 MG PO (19:38)
[2025-03-09] MEDS: LYRICA 75 MG PO (20:05)
[2025-03-09] MEDS: DESYREL 100 MG PO (23:29)
[2025-03-10] MEDS: ROXICODONE 15 MG PO ×3 (02:06→10:37)
[2025-03-10] MEDS: NORMOSOL-R/PLASMALYTE-A 1000 IV (02:06)
[2025-03-10] MEDS: ANCEF 5 IV (02:06)
[2025-03-10 03:01] VITALS: BP 117/71
[2025-03-10] MEDS: TYLENOL PO (05:37)
[2025-03-10 07:30] VITALS: BP 125/69
[2025-03-10] MEDS: OXYCONTIN (CONTROLLED RELEASE) 10 MG PO (08:20)
[2025-03-10] MEDS: LYRICA 75 MG PO (08:20)
[2025-03-10] MEDS: COLACE 100 MG PO (08:20)
[2025-03-10] MEDS: SENOKOT 17.2 MG PO (08:20)
[2025-03-10] MEDS: DECADRON 4 MG IV (08:21)
[2025-03-10] MEDS: NORMOSOL-R/PLASMALYTE-A IV (08:22)
--- NOTE | 2025-03-10 08:26 | W.PN.SP ---
Today's Communication / Plan
-
s/p revision decompressio nand fusion
PT
D/c
Subjective / Objective
Subjective Data
Pt doing well
Leg better
Denies weakness
Objective Data
Vital Signs
Temp Pulse Resp BP Pulse Ox
98.4 F 73 17 117/71 95
03/10/25 03:01 03/10/25 03:01 03/10/25 03:01 03/10/25 03:01 03/10/25 03:01
Intake and Output
03/09/25 03/10/25 03/11/25
06:59 06:59 06:59
Output Total 400 / 400
Balance -400 / -400
Output:
Urine, Voided 400 / 400
Physical Exam
-
Resting comfortably
No weakness
--- NOTE | 2025-03-10 08:27 | W.DS.TRANS ---
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
-
Discharge Instructions:
Discharge Diagnosis/Procedures Revision lumbar lami-psf Dr Armando 03/09/25
Diet As tolerated
Activity No strenuous activity
Driving Restrictions No driving
Instructions:
Stand-Alone Forms: [facility] Lumbar D/C Inst.
Changes to Home Medications: No
Discharge Medications:
DC Medications w/original date entered in [employer]
amoxicillin 500 mg capsule 500 mg PO DAILY Infection 07/24/21
carvedilol 3.125 mg tablet 3.125 mg PO BID Blood pressure 07/24/21
ezetimibe 10 mg tablet 10 mg PO DAILY High cholesterol 07/24/21
tafamidis 61 mg capsule (Vyndamax) 61 mg PO DAILY@1600 Heart Disease/Condition 02/21/23
B-complex with vitamin C 1 caplet PO DAILY Supplement 03/05/23
ascorbic acid (vitamin C) 1,000 mg tablet (Vitamin C) 1,000 mg PO DAILY 04/05/23
aspirin 81 mg tablet,delayed release 162 mg PO DAILY 04/05/23
Held on 03/09/25. Instructions: Resume on 03/14/25.
atorvastatin 80 mg tablet 80 mg PO QPM 04/05/23
cholecalciferol (vitamin D3) 75 mcg (3,000 unit) tablet 75 mcg PO DAILY 04/05/23
omeprazole 20 mg capsule,delayed release 20 mg PO DAILY 04/05/23
potassium chloride 10 mEq tablet,extended release(part/cryst) 10 meq PO DAILY 04/05/23
psyllium husk 5 cap PO BID 04/05/23
empagliflozin 10 mg tablet (Jardiance) 10 mg PO DAILY 02/12/24
efgartigimod geovanny 1008 [id number] 11,200 unit/5.6 mL subcut soln (Vyvgart Hytrulo) 5.6 ml SC QWEEK 05/26/24
cephalexin 500 mg capsule 500 mg PO QID infection prevention #20 caps 03/02/25
coenzyme Q10 100 mg tablet 100 mg PO DAILY 03/02/25
Held on 03/09/25. Instructions: Resume on 03/17/25.
diazepam 5 mg tablet (Valium) 5 mg PO BID PRN spasm/sleep #20 tabs 03/02/25
gabapentin 300 mg capsule 300 mg PO TID sleep/pain #30 caps 03/02/25
naloxone 4 mg/actuation nasal spray (Narcan) 4 mg intranasal Q2M PRN opioid overdose #1 ea 03/02/25
ondansetron 4 mg disintegrating tablet 4 mg PO Q6H PRN n/v #20 tabs 03/02/25
oxycodone 10 mg tablet,crush resistant,extended release 12 hr (OxyContin) 10 mg PO Q12H ongoing therapy #25 tabs 03/02/25
prednisone 10 mg tablet 40 mg (4 x 10 mg) PO TAPER inflammation #20 tabs 03/02/25
trazodone 100 mg tablet 100 mg PO HS 03/02/25
zinc acetate 50 mg (zinc) capsule 50 mg PO DAILY 03/02/25
Lactobac no.2-Bifidobac no.1-S. thermo 112.5 billion cell capsule (Visbiome) 1 cap PO BID #0 caps 03/09/25
acetaminophen 650 mg tablet,extended release 650 mg PO QID #0 tabs 03/09/25
docusate sodium 100 mg capsule (Colace) 100 mg PO BID stool softner #1 cap 03/09/25
eplerenone 25 mg tablet 25 mg PO DAILY #0 tabs 03/09/25
furosemide 40 mg tablet 40 mg PO DAILY #0 tabs 03/09/25
lisinopril 10 mg tablet 10 mg PO HS #0 tabs 03/09/25
magnesium hydroxide 400 mg/5 mL oral suspension (Milk of Magnesia) 30 ml PO HS PRN constipation #1 mL 03/09/25
oxycodone 10 mg tablet 10 mg PO Q6HPRN PRN moderate-severe pain #1 tab 03/09/25
sennosides 8.6 mg tablet (Senokot) 17.2 mg (2 x 8.6 mg) PO BID laxative #2 tabs 03/09/25
Home Medication Changes
Pending Results: No
[2025-03-10 08:28] LABS: Hematocrit 46.3 % (39.0-52.0); Hemoglobin 15.9 g/dL (13.0-18.0)
[2025-03-10 08:54] VITALS: BP 140/82; PULSE 72; O2SAT 95
[2025-03-10 09:47] LABS: Blood Urea Nitrogen 15 mg/dl (9-20); Calcium 9.5 mg/dl (8.4-10.2); Carbon Dioxide 22 mmol/L (22-30); Chloride 104 mmol/L (98-107); Estimated Creatinine Clearance > 125 ml/min; Glucose 154 mg/dl (70-99); Potassium 4.7 mmol/L (3.5-5.1); Sodium 133 mmol/L (135-145); eGFR > 60.00
[2025-03-10] MEDS: TYLENOL 1000 MG PO (10:21)
--- NOTE | 2025-03-10 10:53 | CM ---
Alert awake oriented patient who lives with mk in a 2 story home with 2 steps to enter and 14 steps to bed/bathroom. 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 Offered Vn he declined need. will drive him home.
Cane.Back brace
VN Darvin VN hx . [place] HX
Pharmacy [facility] [address]
PCP Dr Smalls
Plan Home pt declined needs
== END 2025-03-10 11:14 | disposition home or self-care (01) | DRG 451 ==
LOC: 2 SOUTH 09:30
PROVIDERS: Physician Assistant Medical; ADMITTING PHYSICIAN Orthopaedic Surgery Orthopaedic Surgery of the Spine; FAMILY PHYSICIAN Internal Medicine Geriatric Medicine
PROC: 01NB0ZZ Release Lumbar Nerve, Open Approach (ICD-10-PCS; 2025-03-09)
PROC: 0SP004Z Removal of Internal Fixation Device from Lumbar Vertebral Joint, Open Approach (ICD-10-PCS; 2025-03-09)
PROC: 0SG00K1 Fusion of Lumbar Vertebral Joint with Nonautologous Tissue Substitute, Posterior Approach, Posterior Column, Open Approach (ICD-10-PCS; 2025-03-09)
DX: M48.061 Spinal stenosis, lumbar region without neurogenic claudication (principal)
CPT/HCPCS: 76000; 80048; 80053; 85014; 85018; 85027; 86850; 86900; 86901; 87070; 97116; 97163; 97167; 97535; C1713

== ENCOUNTER → 2025-03-25 07:43 | Outpatient (REF) | payer BC, SELFPAY | LOC: REG 07:43 | PROVIDERS: ATTENDING PHYSICIAN Internal Medicine Cardiovascular Disease; FAMILY PHYSICIAN Internal Medicine Geriatric Medicine; OTHER PHYSICIAN Internal Medicine Cardiovascular Disease | DX: G61.81 Chronic inflammatory demyelinating polyneuritis (principal); E85.4 Organ-limited amyloidosis; I43 Cardiomyopathy in diseases classified elsewhere | CPT/HCPCS: 36415; 82784; 82787; 83521; 83880; 84155; 84165; 86334 ==